=== PATIENT | male | born 1960 | race Caucasian/White ===

== ENCOUNTER → 2020-12-17 15:38 | Outpatient (CLI) | payer OTHER, MEDICAID, SELFPAY ==
[2020-12-17 16:22] LABS: BUN Creatinine Ratio 17.9 (6-22); Blood Urea Nitrogen 15 mg/dL (9-20); Calcium 9.5 mg/dL (8.4-10.2); Carbon Dioxide 30 mmol/L (22-32); Chloride 104 mmol/L (98-107); Cholesterol 267 mg/dL (140-199); Estimated Glomerular Filt Rate > 60.0 mL/min (>60); Glucose 102 mg/dL (70-100); HDL Cholesterol 49 mg/dL (40-60); HEMOLYSIS < 15 (0-50); LDL Cholesterol Calculated 185 mg/dL (<100); Potassium 4.2 mmol/L (3.4-5.1); Sodium 138 mmol/L (137-145); Triglycerides 163 mg/dL (35-150)
[2020-12-17 16:53] LABS: Prostate Specific Antigen Scrn 0.752 ng/mL (0.1-4.0)
[2020-12-17 16:58] LABS: Free T4, Direct Thyroxine 1.01 ng/dL (0.78-2.19)
[2020-12-17 17:12] LABS: Thyroid Stimulating Hormone 7.18 uIU/mL (0.47-4.68)
== END ==
PROVIDERS: PCP Student in an Organized Health Care Education/Training Program; Referring Provider Student in an Organized Health Care Education/Training Program; Visit Provider Student in an Organized Health Care Education/Training Program
DX: E03.9 Hypothyroidism, unspecified (principal); Z79.1 Long term (current) use of non-steroidal anti-inflammatories (NSAID); Z12.5 Encounter for screening for malignant neoplasm of prostate; Z13.220 Encounter for screening for lipoid disorders
CPT/HCPCS: 36415; 80048; 80061; 84439; 84443; 84481; G0103

== ENCOUNTER → 2021-04-19 10:03 | Outpatient (CLI) | payer OTHER, MEDICAID, SELFPAY ==
[2021-04-19 12:05] LABS: Cholesterol 251 mg/dL (140-199); HDL Cholesterol 43 mg/dL (40-60); LDL Cholesterol Calculated 155 mg/dL (<100); Triglycerides 264 mg/dL (35-150)
[2021-04-19 13:02] LABS: Free T4, Direct Thyroxine 0.98 ng/dL (0.78-2.19)
== END ==
PROVIDERS: PCP Student in an Organized Health Care Education/Training Program; Referring Provider Student in an Organized Health Care Education/Training Program; Visit Provider Student in an Organized Health Care Education/Training Program
DX: E03.9 Hypothyroidism, unspecified (principal); E78.5 Hyperlipidemia, unspecified
CPT/HCPCS: 36415; 80061; 84439; 84443

== ENCOUNTER → 2021-06-03 09:49 | Outpatient (CLI) | payer OTHER, MEDICAID, SELFPAY ==
[2021-06-03 11:00] LABS: Cholesterol 240 mg/dL (140-199); HDL Cholesterol 47 mg/dL (40-60); LDL Cholesterol Calculated 174 mg/dL (<100); Triglycerides 96 mg/dL (35-150)
[2021-06-03 11:35] LABS: TSH w/ Reflex to FT4 5.84 uIU/mL (0.47-4.68)
[2021-06-03 12:00] LABS: Free T4, Direct Thyroxine 1.45 ng/dL (0.78-2.19)
== END ==
PROVIDERS: PCP Student in an Organized Health Care Education/Training Program; Referring Provider Student in an Organized Health Care Education/Training Program; Visit Provider Student in an Organized Health Care Education/Training Program
DX: E03.9 Hypothyroidism, unspecified (principal); E78.2 Mixed hyperlipidemia
CPT/HCPCS: 36415; 80061; 84439; 84443

== ENCOUNTER → 2021-07-02 12:52 | Outpatient (CLI) | payer OTHER, MEDICAID, SELFPAY ==
--- NOTE | 2021-07-02 12:54 | DI.US.S_ITS ---
PROCEDURE: US RENAL COMPLETE INDICATIONS: Nocturia TECHNIQUE: Real-time scanning was performed of the kidneys and bladder, with image documentation. COMPARISON: None. FINDINGS: Kidneys: Kidneys are normal in size. Right kidney measures 10.1 cm long; left kidney measures 10.8 cm long. Right renal cortical thickness is 1.7 cm; left renal cortical thickness is 1.5 cm. Renal cortical echotexture is normal. No hydronephrosis or nephrolithiasis. No suspicious solid mass lesions. Bladder: Pre-void bladder volume is 88 mL. Post-void residual is 56 mL. Pre-void images demonstrate no intraluminal masses or stones. On pre-void images, right ureteral jet is noted with color Doppler interrogation. (Of note, ureteral jets may not be detectable in up to 25% of cases due to insufficient differences in specific gravity between ureteral and bladder urine). Miscellaneous: No free pelvic fluid. Incidentally noted of increased liver parenchymal echotexture is seen. IMPRESSION: 1. Normal appearing bilateral kidneys. No hydronephrosis or solid appearing renal lesion. 2. No gross bladder wall abnormality. Moderate amount of postvoid residual. 3. Incidentally noted of hepatic steatosis. Dictated by: Robby Gonzales M.D. on 07/02/2021 at 15:02 Approved by: Robby Gonzales M.D. on 07/02/2021 at 15:03
== END ==
PROVIDERS: PCP Student in an Organized Health Care Education/Training Program; Referring Provider Student in an Organized Health Care Education/Training Program; Visit Provider Student in an Organized Health Care Education/Training Program
DX: R35.1 Nocturia (principal); K76.0 Fatty (change of) liver, not elsewhere classified
CPT/HCPCS: 76770

== ENCOUNTER → 2021-09-07 09:49 | Outpatient (CLI) | payer OTHER, MEDICAID, SELFPAY ==
[2021-09-07 12:59] LABS: Alanine Aminotransferase 33 IU/L (<50); Albumin 4.2 g/dL (3.5-5.0); Albumin Globulin Ratio 1.8 (1.0-2.8); Alkaline Phosphatase 61 U/L (38-126); Aspartate Aminotransferase 38 IU/L (17-59); Bilirubin Total 0.5 mg/dL (0.2-1.3); Bilirubin Unconjugated 0.5 mg/dL (0.0-1.1); Cholesterol 148 mg/dL (140-199); Globulin 2.4 g/dL (1.7-4.1); HDL Cholesterol 38 mg/dL (40-60); HEMOLYSIS < 15 (0-50); LDL Cholesterol Calculated 81 mg/dL (<100); Total Protein 6.6 g/dL (6.3-8.2); Triglycerides 144 mg/dL (35-150)
== END ==
PROVIDERS: PCP Student in an Organized Health Care Education/Training Program; Referring Provider Physician Assistant; Visit Provider Physician Assistant
DX: L70.0 Acne vulgaris (principal)
CPT/HCPCS: 36415; 80061; 80076

== ENCOUNTER → 2021-10-18 10:21 | Outpatient (CLI) | payer OTHER, MEDICAID, SELFPAY ==
--- NOTE | 2021-10-18 10:25 | DI.MRI.S_ITS ---
PROCEDURE: MR HEAD/BRAIN WO/W CON INDICATIONS: metastatic brain metastasis TECHNIQUE: Noncontrast axial T1 spin echo, axial T2 fast spin echo, sagittal and axial FLAIR, coronal T2 fast spin echo, axial gradient echo, axial diffusion and ADC through the brain. After the administration of contrast, axial and coronal 3D VIBE or T1 spin echo with fat saturation through the brain. COMPARISON: None. This dictation was delayed, awaiting outside prior images, which have not arrived. However, correlation is made with the prior outside report dated 10/13/2020. FINDINGS: Image quality: Excellent. CSF Spaces: Basal cisterns are patent. No extra-axial fluid collections. Ventricles are normal in size and shape. Brain: There are areas of volume loss and encephalomalacia, particular involving the anterior aspect of the right frontal lobe and the posterior aspect of the left frontal lobe. No abnormal enhancement can be seen within these regions. No masses or abnormal enhancement can be seen elsewhere. No midline shift. The brainstem appears normal. Diffusion-weighted images demonstrate no acute ischemic insults. Normal intravascular flow voids are present. Skull and face: Superior craniotomy changes are seen. Calvarial marrow is normal in signal. Orbits appear normal. Sinuses: Sinuses and mastoids appear clear. IMPRESSION: Areas of focal volume loss can be seen, which most likely represent prior biopsy/resection change, although prior areas of infarction are also possible. No masses or areas of abnormal in [place] can be seen to suggest active metastatic disease. No findings of acute or subacute infarction can be seen. Dictated by: Darwin Randolph M.D. on 10/25/2021 at 14:40 Approved by: Darwin Randolph M.D. on 10/25/2021 at 14:43
--- NOTE | 2021-10-18 10:25 | DI.CT.S_ITS ---
PROCEDURE: CT CHEST ABD PEL W CON INDICATIONS: metastatic melanoma TECHNIQUE: After the administration of oral and intravenous contrast, axial sections acquired from the supraclavicular neck to the pubic symphysis. Coronal and sagittal reformats were performed. For radiation dose reduction, the following was used: automated exposure control, adjustment of mA and/or kV according to patient size. COMPARISON:[facility], US, US RENAL COMPLETE, 07/02/2021, 13:18. FINDINGS: Image quality: Excellent. CHEST: Lower Neck: No enlarged lymph nodes. Thyroid: Within normal limits. Axillae: No enlarged lymph nodes. Bilateral axillary clips. Chest Wall: Tiny nodule in the subcutaneous fat adjacent to the right shoulder measuring 0.7 cm, (2/13). Lungs and Airways: -Left lower lobe pulmonary nodule measuring 0.7 cm, (3/211). -Right lower lobe pulmonary nodule measuring 0.6 cm, (3/224). Right lower lobe calcified granuloma. No acute airspace opacity. Airways are clear. Pleura: No pneumothorax or pleural effusions. Heart: Heart size is normal. No pericardial effusion. Thoracic Vessels: The aorta and pulmonary arteries demonstrate normal size. Left vertebral artery originates off of the aortic arch. No central pulmonary embolism. Mediastinum and [place]: No enlarged lymph nodes. Esophagus: No wall thickening. No hiatal hernia. ABDOMEN: Liver: No focal lesion. Gallbladder: Unremarkable. Biliary ducts: Unremarkable. Pancreas: Unremarkable. Spleen: Unremarkable. Adrenal Glands: No nodule. Kidneys and Ureters: No hydronephrosis. No solid renal mass. Stomach and Bowel: Stomach, small bowel loops, and colon are unremarkable. Diverticulosis. Normal appendix. Peritoneum: No abnormal intraperitoneal fluid. No free air. Ventral Wall: No hernia. Abdominal Nodes: No retroperitoneal or mesenteric adenopathy by size criteria. Intra-aortocaval node measuring 0.8 cm, (2/86). Vessels: Aorta and inferior vena cava are normal in size. Splenic artery originates off of the aorta, variant. PELVIS: Pelvic Organs: Unremarkable. Bladder: Unremarkable. Pelvic Nodes: No enlarged lymph nodes. Miscellaneous: Fat containing left inguinal hernia. Bones: No suspicious lesion. Moderate lumbar spine DDD. IMPRESSION: 1. A couple pulmonary nodules. Largest at the left lower lobe measuring at 0.7 cm. These are indeterminate but concerning for metastatic disease. 2. Bilateral axillary node dissections. Small nodule in the right shoulder subcutaneous fat measuring 0.7 cm is indeterminate. 3. Mildly prominent retroperitoneal lymph node. Dictated by: Sachin Lewis M.D. on 10/25/2021 at 15:35 Approved by: Sachin Lewis M.D. on 10/25/2021 at 15:50
== END ==
PROVIDERS: PCP Student in an Organized Health Care Education/Training Program; Referring Provider Internal Medicine Hematology & Oncology; Visit Provider Internal Medicine Hematology & Oncology
DX: C79.31 Secondary malignant neoplasm of brain (principal); L70.0 Acne vulgaris; L85.3 Xerosis cutis; K13.0 Diseases of lips; G93.89 Other specified disorders of brain; R59.0 Localized enlarged lymph nodes; R91.8 Other nonspecific abnormal finding of lung field; Z79.899 Other long term (current) drug therapy
CPT/HCPCS: 70553; 71260; 74177; A9579; Q9967

== ENCOUNTER → 2021-11-09 08:24 | Outpatient (CLI) | payer OTHER, MEDICAID, SELFPAY ==
[2021-11-09 10:44] LABS: Alanine Aminotransferase 70 IU/L (<50); Albumin 4.5 g/dL (3.5-5.0); Albumin Globulin Ratio 1.5 (1.0-2.8); Alkaline Phosphatase 69 U/L (38-126); Aspartate Aminotransferase 53 IU/L (17-59); Bilirubin Total 0.4 mg/dL (0.2-1.3); Bilirubin Unconjugated 0.3 mg/dL (0.0-1.1); Cholesterol 197 mg/dL (140-199); Globulin 3.1 g/dL (1.7-4.1); HDL Cholesterol 41 mg/dL (40-60); HEMOLYSIS < 15 (0-50); LDL Cholesterol Calculated 119 mg/dL (<100); Total Protein 7.6 g/dL (6.3-8.2); Triglycerides 187 mg/dL (35-150)
[2021-11-09 10:55] LABS: LDL Cholesterol Direct 95 mg/dL (<100)
== END ==
PROVIDERS: PCP Student in an Organized Health Care Education/Training Program; Referring Provider Physician Assistant; Visit Provider Physician Assistant
DX: L70.0 Acne vulgaris (principal)
CPT/HCPCS: 36415; 80061; 80076; 83721

== ENCOUNTER → 2022-04-25 11:09 | Outpatient (CLI) | payer OTHER, MEDICAID, SELFPAY ==
[2022-04-25 12:21] LABS: Add Manual Diff / Slide Review NO; Basophils Absolute Auto 100 /uL (0-100); Eosinophils Absolute Auto 200 /uL (0-450); Eosinophils Percent Auto 2.9 % (2-4); Hematocrit 42.9 % (41-53); Hemoglobin 14.9 g/dL (13.5-17.5); Lymphocytes Absolute Auto 1600 /uL (1100-4500); Lymphocytes Percent Auto 25.7 % (25-40); Mean Corpuscular HGB Conc 34.8 % (30-36); Mean Corpuscular Hemoglobin 28.9 PG (26-34); Monocytes Absolute Auto 400 /uL (0-900); Monocytes Percent Auto 5.8 % (3-14); Neutrophils Absolute Auto 4000 /uL (1500-7000); Neutrophils Percent Auto 64.6 % (50-75); Platelet Count 190 X10^3/uL (150-400); Red Blood Cell Count 5.17 X10^6/uL (4.5-5.9); Red Cell Distribution Width 12.8 % (11.6-14.8); White Blood Cell Count 6.2 X10^3/uL (4.5-11.0)
[2022-04-25 13:03] LABS: Alanine Aminotransferase 44 IU/L (<50); Albumin 4.2 g/dL (3.5-5.0); Albumin Globulin Ratio 1.4 (1.0-2.8); Alkaline Phosphatase 78 U/L (38-126); Aspartate Aminotransferase 42 IU/L (17-59); Bilirubin Total 0.7 mg/dL (0.2-1.3); Blood Urea Nitrogen 13 mg/dL (9-20); Calcium 9.2 mg/dL (8.4-10.2); Carbon Dioxide 33 mmol/L (22-32); Chloride 99 mmol/L (98-107); Estimated Glomerular Filt Rate > 60 mL/min (>60); Globulin 3.1 g/dL (1.7-4.1); Glucose 110 mg/dL (80-110); HEMOLYSIS < 15 (0-50); Potassium 4.8 mmol/L (3.4-5.1); Sodium 139 mmol/L (137-145); Total Protein 7.3 g/dL (6.3-8.2)
[2022-04-25 13:08] LABS: Cholesterol 167 mg/dL (140-199); HDL Cholesterol 49 mg/dL (40-60); LDL Cholesterol Calculated 89 mg/dL (<100); Triglycerides 145 mg/dL (35-150)
== END ==
PROVIDERS: Internal Medicine Hematology & Oncology; PCP Student in an Organized Health Care Education/Training Program; Referring Provider Student in an Organized Health Care Education/Training Program; Visit Provider Student in an Organized Health Care Education/Training Program
DX: E78.2 Mixed hyperlipidemia (principal); C79.31 Secondary malignant neoplasm of brain; Z85.820 Personal history of malignant melanoma of skin
CPT/HCPCS: 36415; 80053; 80061; 85025

== ENCOUNTER → 2022-10-13 07:55 | Outpatient (CLI) | payer OTHER, MEDICAID, SELFPAY ==
--- NOTE | 2022-10-13 07:58 | DI.CT.S_ITS ---
PROCEDURE: CT CHEST ABD PEL W CON INDICATIONS: metastatic melanoma TECHNIQUE: After the administration of oral and intravenous contrast, axial sections acquired from the supraclavicular neck to the pubic symphysis. Coronal and sagittal reformats were performed. For radiation dose reduction, the following was used: automated exposure control, adjustment of mA and/or kV according to patient size. COMPARISON: [facility], CT, CT CHEST ABD PEL W CON, 10/18/2021, 12:16. FINDINGS: Image quality: Excellent. CHEST: Lower Neck: No enlarged lymph nodes. Thyroid: Within normal limits. Axillae: No enlarged lymph nodes. Bilateral axillary node resections. Chest Wall: Unremarkable. Unchanged size of subcutaneous nodular density, subcutaneous fat near the right shoulder, image 11/2. Lungs and Airways: Pulmonary nodules are as follows: 1. Posterior left lower lobe, previous image 211 and current image 222/5. Unchanged, measuring 7 mm. 2. Posterior lateral right lower lobe, previous image 224 and current image 216/5, unchanged, measuring 6 mm. 3. Question slight interval increase in a left lower lobe pulmonary nodule, previous image 157 and current image 162, previously 2 mm and currently 3 or 4 mm. Pleura: No pneumothorax or pleural effusions. Heart: Heart size is normal. No pericardial effusion. Thoracic Vessels: Borderline aneurysmal dilatation of the ascending aorta, measuring 4.1 cm. Pulmonary arteries are normal in caliber. Normal variant origin of the left vertebral artery as an independent vessel off the aortic arch. Mediastinum and Daph[place]: No enlarged lymph nodes. Esophagus: No wall thickening. No hiatal hernia. ABDOMEN: Liver: Unremarkable. Gallbladder: Unremarkable. Biliary ducts: Unremarkable. Pancreas: Unremarkable. Spleen: Unremarkable. Adrenal Glands: Unremarkable. Kidneys and Ureters: Unremarkable. Stomach and Bowel: Very mild diverticulosis. Otherwise unremarkable. Peritoneum: No abnormal intraperitoneal fluid. No free air. Ventral Wall: No hernia. Abdominal Nodes: No retroperitoneal or mesenteric adenopathy by size criteria. Vessels: Aorta and inferior vena cava are normal in size. PELVIS: Pelvic Organs: Unremarkable. Bladder: Unremarkable. Pelvic Nodes: No enlarged lymph nodes. Miscellaneous: No inguinal hernias are seen. Bones: Chronic benign deformity of the medial left iliac bone. No lytic or blastic bony lesions. Lumbar degenerative change. IMPRESSION: 1. There is a question of slight interval increase in size of the smallest of 3 measured pulmonary nodules. This is not definite. These certainly can all be benign pulmonary nodules. 2. No other significant findings in the chest. 3. No evidence of metastatic disease in the abdomen and pelvis. Comment: Consider follow-up CT in 12 months. Dictated by: Donis Dominguez M.D. on 10/13/2022 at 12:31 Approved by: Donis Dominguez M.D. on 10/13/2022 at 13:01
--- NOTE | 2022-10-13 07:58 | DI.MRI.S_ITS ---
PROCEDURE: MR HEAD/BRAIN WO/W CON INDICATIONS: metastic melanoma TECHNIQUE: Noncontrast axial T1 spin echo, axial T2 fast spin echo, sagittal and axial FLAIR, coronal T2 fast spin echo, axial gradient echo, axial diffusion and ADC through the brain. After the administration of contrast, axial and coronal and sagittal T1 spin echo with fat saturation through the brain. COMPARISON: [facility], MR, MR HEAD/BRAIN WO/W CON, 10/18/2021, 10:47. FINDINGS: Image quality: Excellent. CSF spaces: Basal cisterns are patent. No extra-axial fluid collections. Ventricles are normal in size and shape. Brain: No midline shift. No acute intracranial bleeds or masses. No abnormal intracranial enhancement. Multifocal regions of encephalomalacia within the right frontal and left parietal lobes, as before. There is cerebral volume loss for age. There is periventricular white matter chronic small vessel ischemic change. The brainstem appears normal. Diffusion-weighted images demonstrate no acute ischemic insults. No chronic ischemic insults. Normal intravascular flow voids are present. Skull and face: Bilateral craniotomies, as before. Calvarial marrow is otherwise normal in signal. Orbits appear normal. Sinuses: Sinuses and mastoids appear clear. IMPRESSION: 1. Stable postsurgical sequelae. 2. Stable bilateral regions of encephalomalacia, consistent with resection cavities and/or chronic infarction. 3. No evidence active metastatic disease. Dictated by: Armin Martini M.D. on 10/13/2022 at 10:15 Approved by: Armin Martini M.D. on 10/13/2022 at 10:18
[2022-10-13 08:15] LABS: Add Manual Diff / Slide Review NO; Basophils Absolute Auto 0 /uL (0-100); Basophils Percent Auto 0.8 % (0-2); Eosinophils Absolute Auto 100 /uL (0-450); Eosinophils Percent Auto 2.4 % (2-4); Hematocrit 41.5 % (41-53); Hemoglobin 14.7 g/dL (13.5-17.5); Lymphocytes Absolute Auto 1400 /uL (1100-4500); Lymphocytes Percent Auto 26.2 % (25-40); Mean Corpuscular HGB Conc 35.5 % (30-36); Mean Corpuscular Hemoglobin 29.2 PG (26-34); Mean Corpuscular Volume 82.2 fL (80-100); Monocytes Absolute Auto 400 /uL (0-900); Monocytes Percent Auto 7.7 % (3-14); Neutrophils Absolute Auto 3500 /uL (1500-7000); Neutrophils Percent Auto 62.9 % (50-75); Platelet Count 155 X10^3/uL (150-400); Red Blood Cell Count 5.04 X10^6/uL (4.5-5.9); Red Cell Distribution Width 12.8 % (11.6-14.8); White Blood Cell Count 5.5 X10^3/uL (4.5-11.0)
[2022-10-13 08:26] LABS: Alanine Aminotransferase 34 IU/L (<50); Albumin 4.5 g/dL (3.5-5.0); Albumin Globulin Ratio 1.5 (1.0-2.8); Alkaline Phosphatase 65 U/L (38-126); Aspartate Aminotransferase 35 IU/L (17-59); Bilirubin Total 0.6 mg/dL (0.2-1.3); Blood Urea Nitrogen 15 mg/dL (9-20); Calcium 9.1 mg/dL (8.4-10.2); Carbon Dioxide 33 mmol/L (22-32); Chloride 100 mmol/L (98-107); Estimated Glomerular Filt Rate > 60 mL/min (>60); Globulin 3.1 g/dL (1.7-4.1); Glucose 102 mg/dL (80-110); HEMOLYSIS < 15 (0-50); Lactate Dehydrogenase 190 U/L (120-246); Potassium 4.3 mmol/L (3.4-5.1); Sodium 138 mmol/L (137-145); Total Protein 7.6 g/dL (6.3-8.2)
== END ==
PROVIDERS: PCP Student in an Organized Health Care Education/Training Program; Referring Provider Internal Medicine Hematology & Oncology; Visit Provider Internal Medicine Hematology & Oncology
DX: C79.31 Secondary malignant neoplasm of brain (principal); Z85.820 Personal history of malignant melanoma of skin; G93.89 Other specified disorders of brain; R91.8 Other nonspecific abnormal finding of lung field
CPT/HCPCS: 36415; 70553; 71260; 74177; 80053; 83615; 85025; A9579; Q9967

== ENCOUNTER → 2023-04-11 11:33 | Outpatient (CLI) | payer OTHER, MEDICAID, SELFPAY ==
[2023-04-11 12:12] LABS: Add Manual Diff / Slide Review NO; Basophils Absolute Auto 100 /uL (0-100); Eosinophils Absolute Auto 100 /uL (0-450); Eosinophils Percent Auto 2.1 % (2-4); Hematocrit 43.2 % (41-53); Hemoglobin 14.9 g/dL (13.5-17.5); Lymphocytes Absolute Auto 1500 /uL (1100-4500); Mean Corpuscular HGB Conc 34.5 % (30-36); Mean Corpuscular Hemoglobin 28.7 PG (26-34); Mean Corpuscular Volume 83.2 fL (80-100); Monocytes Absolute Auto 400 /uL (0-900); Monocytes Percent Auto 6.9 % (3-14); Neutrophils Absolute Auto 3200 /uL (1500-7000); Platelet Count 165 X10^3/uL (150-400); Red Blood Cell Count 5.19 X10^6/uL (4.5-5.9); Red Cell Distribution Width 12.5 % (11.6-14.8); White Blood Cell Count 5.2 X10^3/uL (4.5-11.0)
[2023-04-11 12:49] LABS: HEMOLYSIS < 15 (0-50)
[2023-04-11 12:56] LABS: Alanine Aminotransferase 41 IU/L (<50); Albumin 4.6 g/dL (3.5-5.0); Albumin Globulin Ratio 1.5 (1.0-2.8); Alkaline Phosphatase 59 U/L (38-126); Aspartate Aminotransferase 47 IU/L (17-59); BUN Creatinine Ratio 17.2 (6-22); Bilirubin Total 0.7 mg/dL (0.2-1.3); Blood Urea Nitrogen 17 mg/dL (9-20); Calcium 9.8 mg/dL (8.4-10.2); Carbon Dioxide 32 mmol/L (22-32); Chloride 98 mmol/L (98-107); Cholesterol 185 mg/dL (140-199); Estimated Glomerular Filt Rate > 60 mL/min (>60); Globulin 3.1 g/dL (1.7-4.1); Glucose 106 mg/dL (80-110); HDL Cholesterol 52 mg/dL (40-60); LDL Cholesterol Calculated 100 mg/dL (<100); Potassium 4.5 mmol/L (3.4-5.1); Sodium 137 mmol/L (137-145); Total Protein 7.7 g/dL (6.3-8.2); Triglycerides 165 mg/dL (35-150)
[2023-04-11 15:57] LABS: Hemoglobin A1C% w Est Avg Glu 5.3 % (4.0-6.0)
[2023-04-11 17:51] LABS: TSH w/ Reflex to FT4 2.93 uIU/mL (0.47-4.68)
[2023-04-13 18:12] LABS: HIV 1 & 2 Ab/Ag 4th Gen Combo NEGATIVE (NEGATIVE); Hep C Virus Ab w/Reflex Quant NEGATIVE s/c (NEGATIVE)
== END ==
PROVIDERS: PCP Family Medicine; Referring Provider Family Medicine; Visit Provider Family Medicine
DX: E03.9 Hypothyroidism, unspecified (principal); E78.2 Mixed hyperlipidemia; Z00.00 Encounter for general adult medical examination without abnormal findings
CPT/HCPCS: 36415; 80053; 80061; 83036; 84153; 84443; 85025; 86803; 87389

== ENCOUNTER → 2023-04-11 11:34 | Oncology outpatient (ONC) | payer OTHER, MEDICAID, SELFPAY ==
--- NOTE | 2021-05-05 09:50 | ONC.MSW ---
Description: New Referral Navigation T/C Reason for Referral: Hx Melanoma-metastatic, wants to establish care Activity: Reviewed clinicals and referral for medical status, acuity, and immediate needs. Pt was first dx 12/2015, had surgery and Gamma Knife procedure done, followed by chemo with nivolumab from 03/11-03/12 at the [facility] in [place]. He was last seen by his Oncologist, Dr. Luciano, 03/2019, and had a CT and MRI done in March 2020. Forwarded to scheduling for next available consult time. NOTE: PCP recommends to NOT GIVE CONTROLLED SUBSTANCES, pt has a hx of substance abuse.
--- NOTE | 2021-05-27 11:16 | P.CONONC_ITS ---
History of Present Illness - Data of Consult Patient: new to practice Consult date: 05/27/21 Requesting Physician: Dheeraj Wade MD Primary Care Provider: Dheeraj Wade MD - Consult Narrative Reason for consult: Metastatic melanoma, BRAF V600K mutation positive Narrative: Nicho Reyes is a 60 year old male. He recalled that he was diagnosed with skin melanoma in the upper back about 9+ years ago (2009). He then was diagnosed with metastatic melanoma to the brain, BRaf V600K positive in 2015. 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 Patient underwent surgical resection of brain metastasis in December 2015 followed by gamma knife treatment. Patient was found to have low volume pulmonary metastasis on CT imaging. Patient received immunotherapy with nivolumab from February 2016 to February 2017 with no significant side effects. Patient has been followed by surveillance CT scan and MRI brain since. On 10/26/2020, patient was evaluated by Lauryn Arreaga at [facility]. CT chest abdomen and pelvis on 10/21/2020 showed stable examination without evidence of disease progression. It reported right lower lobe pulmonary nodule 6 mm and left lower lobe pulmonary nodule 7 mm. The patient also underwent brain MRI on 10/15/2020 that showed no evidence of new or progressive metastatic disease. No evidence of recent infarct, no acute intracranial hemorrhage, and no pathologic mass effect or significant interval change. He has been off imunotherpay for 4+ years. He reports no headache, no vision changes. no double vision, and no fatigue. He works out a lot. He has dry cough. No abdominal pain, no diarrhea and no skin rashes. CC: Jad Merritt MD Home Medications and Allergies Home Medications Medication Instructions Recorded Confirmed Type famotidine 20 mg tablet 20 mg PO BEDTIME 12/17/20 05/27/21 History ibuprofen 600 mg tablet 600 mg PO Q8H PRN 12/17/20 05/27/21 History levothyroxine 100 mcg tablet 100 mcg PO DAILY #90 tab 04/19/21 05/27/21 Rx pravastatin 40 mg tablet 40 mg PO DAILY #90 tab 04/21/21 05/27/21 Rx ascorbic acid (vitamin C) 500 mg 500 mg PO DAILY 05/27/21 05/27/21 History capsule,extended release (Vitamin C) cholecalciferol (vitamin D3) 50 50 mcg PO DAILY 05/27/21 05/27/21 History mcg (2,000 unit) capsule (Vitamin D3) multivitamin 1 tab PO DAILY 05/27/21 05/27/21 History Allergies Allergy/AdvReac Type Severity Reaction Status Date / Time No Known Drug Allergies Allergy Unverified 12/17/20 14:42 Medical History - Medical, Surgical, Family History Medical History: Medical History (Last Updated 05/27/21 @ 12:17 by Jad Merritt MD) HLD (hyperlipidemia) Hx of malignant melanoma of skin Hypothyroidism Surgical History: Surgical History (Last Updated 05/27/21 @ 12:17 by Jad Merritt MD) H/O craniotomy Family History: Family History (Last Updated 05/27/21 @ 12:17 by Jad Merritt MD) Mother Breast cancer - Social History Smoking Status: Never smoker Substance Use Type: does not use Alcohol Intake: never Review of Systems All systems PM: reviewed and no additional remarkable complaints except as stated Exam Vital signs: 05/27/21 23:23 Last Vital Signs Temp 98.6 F 05/27/21 11:51 Pulse 58 L 05/27/21 11:51 Resp 18 05/27/21 11:51 BP 137/86 05/27/21 11:51 Pulse Ox 98 05/27/21 11:51 - Constitutional positive no acute distress, positive morbidly obese, positive cooperative - Routine HEENT Exam Head: Present: normocephalic Eye: Present: EOMI, PERRL, normal accommodation. Absent: conjunctival icterus - Routine Neck Exam Present: supple. Absent: lymphadenopathy, thyromegaly - Routine Chest/Breast/Axilla Exam Axillae: Absent: lymphadenopathy - Routine Respiratory Exam Present: Clear to auscultation bilaterally. Absent: wheezes - Routine Cardiovascular Exam Present: RRR, S1, S2. Absent: murmur, gallop, rubs - Routine Abdominal Exam Present: soft. Absent: tenderness, distended, rebound, organomegaly - Routine Extremities Exam Absent: edema - Routine Neurological Exam Present: alert, oriented X3, CN II-XII intact. Absent: sensory deficit, motor deficit - Routine Psychiatric Exam Present: normal affect Results - Labs Laboratory Last Values WBC 6.1 X10^3/uL (4.5-11.0) 05/27/21 12:55 RBC 5.16 X10^6/uL (4.5-5.9) 05/27/21 12:55 Hgb 14.9 g/dL (13.5-17.5) 05/27/21 12:55 Hct 42.3 % (41-53) 05/27/21 12:55 MCV 81.9 fL (80-100) 05/27/21 12:55 MCH 28.9 PG (26-34) 05/27/21 12:55 MCHC 35.3 % (30-36) 05/27/21 12:55 RDW 13.1 % (11.6-14.8) 05/27/21 12:55 Plt Count 162 X10^3/uL (150-400) 05/27/21 12:55 Neut % (Auto) 62.1 % (50-75) 05/27/21 12:55 Lymph % (Auto) 27.3 % (25-40) 05/27/21 12:55 [place] % (Auto) 7.3 % (3-14) 05/27/21 12:55 Eos % (Auto) 2.1 % (2-4) 05/27/21 12:55 Baso % (Auto) 1.2 % (0-2) 05/27/21 12:55 Neut # (Auto) 3800 /uL (7032-1684) 05/27/21 12:55 Lymph # (Auto) 1700 /uL (3424-3696) 05/27/21 12:55 [place] # (Auto) 400 /uL (0-900) 05/27/21 12:55 Eos # (Auto) 100 /uL (0-450) 05/27/21 12:55 Baso # (Auto) 100 /uL (0-100) 05/27/21 12:55 Sodium 139 mmol/L (137-145) 05/27/21 12:55 Potassium 4.4 mmol/L (3.4-5.1) 05/27/21 12:55 Chloride 99 mmol/L (98-107) 05/27/21 12:55 Carbon Dioxide 33 mmol/L (22-32) H 05/27/21 12:55 BUN 17 mg/dL (9-20) 05/27/21 12:55 Creatinine 0.98 mg/dL (0.66-1.25) 05/27/21 12:55 Estimated GFR > 60.0 mL/min (>60) 05/27/21 12:55 BUN/Creatinine Ratio 17.3 (6-22) 05/27/21 12:55 Glucose 87 mg/dL (70-100) 05/27/21 12:55 Calcium 9.8 mg/dL (8.4-10.2) 05/27/21 12:55 Total Bilirubin 0.7 mg/dL (0.2-1.3) 05/27/21 12:55 AST 40 IU/L (17-59) 05/27/21 12:55 ALT 35 IU/L (<50) 05/27/21 12:55 Alkaline Phosphatase 64 U/L (38-126) 05/27/21 12:55 Lactate Dehydrogenase 525 U/L (313-618) 05/27/21 12:55 Total Protein 7.4 g/dL (6.3-8.2) 05/27/21 12:55 Albumin 4.6 g/dL (3.5-5.0) 05/27/21 12:55 Globulin 2.8 g/dL (1.7-4.1) 05/27/21 12:55 Albumin/Globulin Ratio 1.6 (1.0-2.8) 05/27/21 12:55 Assessment and Plan (1) Malignant melanoma metastatic to brain 60 year old male with remote history of upper back melanoma status post wide local excision and bilateral axillary lymph node dissection about in 2009. He developed recurrent metastatic melanoma involving brain s/p craniotomy in December 2015 followed by gamma knife treatment and one year of nivolumab completed 03/15 17. His melanoma is BRAF V600K positive. He has been on active surveillance since and has been ALPESH for the past 4+ years. Clinically, I do not think there is any evidence of disease recurrence. I will continue the planned surveillance. Plan: CBC, CMP, TSH in [address] CAP w/contrast in 6 months MR brain w/wo contrast in 6 months RTC after the above results are available
[2021-05-27 11:51] VITALS: BP 137/86; PULSE 58; RESP 18; TEMP 37; O2SAT 98
[2021-05-27 13:11] LABS: Add Manual Diff / Slide Review NO; Basophils Absolute Auto 100 /uL (0-100); Basophils Percent Auto 1.2 % (0-2); Eosinophils Absolute Auto 100 /uL (0-450); Eosinophils Percent Auto 2.1 % (2-4); Hematocrit 42.3 % (41-53); Hemoglobin 14.9 g/dL (13.5-17.5); Lymphocytes Absolute Auto 1700 /uL (1100-4500); Lymphocytes Percent Auto 27.3 % (25-40); Mean Corpuscular HGB Conc 35.3 % (30-36); Mean Corpuscular Hemoglobin 28.9 PG (26-34); Mean Corpuscular Volume 81.9 fL (80-100); Monocytes Absolute Auto 400 /uL (0-900); Monocytes Percent Auto 7.3 % (3-14); Neutrophils Absolute Auto 3800 /uL (1500-7000); Neutrophils Percent Auto 62.1 % (50-75); Platelet Count 162 X10^3/uL (150-400); Red Blood Cell Count 5.16 X10^6/uL (4.5-5.9); Red Cell Distribution Width 13.1 % (11.6-14.8); White Blood Cell Count 6.1 X10^3/uL (4.5-11.0)
[2021-05-27 16:18] LABS: Alanine Aminotransferase 35 IU/L (<50); Albumin 4.6 g/dL (3.5-5.0); Albumin Globulin Ratio 1.6 (1.0-2.8); Alkaline Phosphatase 64 U/L (38-126); Aspartate Aminotransferase 40 IU/L (17-59); BUN Creatinine Ratio 17.3 (6-22); Bilirubin Total 0.7 mg/dL (0.2-1.3); Blood Urea Nitrogen 17 mg/dL (9-20); Calcium 9.8 mg/dL (8.4-10.2); Carbon Dioxide 33 mmol/L (22-32); Chloride 99 mmol/L (98-107); Estimated Glomerular Filt Rate > 60.0 mL/min (>60); Globulin 2.8 g/dL (1.7-4.1); Glucose 87 mg/dL (70-100); HEMOLYSIS 16 (0-50); Lactate Dehydrogenase 525 U/L (313-618); Potassium 4.4 mmol/L (3.4-5.1); Sodium 139 mmol/L (137-145); Total Protein 7.4 g/dL (6.3-8.2)
[2021-08-06 11:48] LABS: Add Manual Diff / Slide Review NO; Basophils Absolute Auto 0 /uL (0-100); Basophils Percent Auto 0.6 % (0-2); Eosinophils Absolute Auto 200 /uL (0-450); Eosinophils Percent Auto 2.9 % (2-4); Hematocrit 41.4 % (41-53); Hemoglobin 14.6 g/dL (13.5-17.5); Lymphocytes Absolute Auto 1600 /uL (1100-4500); Lymphocytes Percent Auto 26.5 % (25-40); Mean Corpuscular HGB Conc 35.1 % (30-36); Mean Corpuscular Hemoglobin 28.7 PG (26-34); Mean Corpuscular Volume 81.7 fL (80-100); Monocytes Absolute Auto 400 /uL (0-900); Monocytes Percent Auto 7.2 % (3-14); Neutrophils Absolute Auto 3900 /uL (1500-7000); Neutrophils Percent Auto 62.8 % (50-75); Platelet Count 184 X10^3/uL (150-400); Red Blood Cell Count 5.07 X10^6/uL (4.5-5.9); Red Cell Distribution Width 13.2 % (11.6-14.8); White Blood Cell Count 6.2 X10^3/uL (4.5-11.0)
[2021-08-06 12:23] LABS: Alanine Aminotransferase 48 IU/L (<50); Albumin 4.5 g/dL (3.5-5.0); Albumin Globulin Ratio 1.7 (1.0-2.8); Alkaline Phosphatase 68 U/L (38-126); Aspartate Aminotransferase 46 IU/L (17-59); Bilirubin Total 0.6 mg/dL (0.2-1.3); Bilirubin Unconjugated 0.6 mg/dL (0.0-1.1); Cholesterol 174 mg/dL (140-199); Globulin 2.6 g/dL (1.7-4.1); HDL Cholesterol 49 mg/dL (40-60); HEMOLYSIS < 15 (0-50); LDL Cholesterol Calculated 102 mg/dL (<100); Total Protein 7.1 g/dL (6.3-8.2); Triglycerides 115 mg/dL (35-150); VLDL Cholesterol Calculated 23 mg/dL (2-30)
[2021-10-18 12:15] LABS: Add Manual Diff / Slide Review NO; Alanine Aminotransferase 94 IU/L (<50); Albumin 4.2 g/dL (3.5-5.0); Albumin Globulin Ratio 1.4 (1.0-2.8); Alkaline Phosphatase 75 U/L (38-126); Aspartate Aminotransferase 77 IU/L (17-59); BUN Creatinine Ratio 18.3 (6-22); Basophils Absolute Auto 0 /uL (0-100); Basophils Percent Auto 0.5 % (0-2); Bilirubin Total 0.4 mg/dL (0.2-1.3); Bilirubin Unconjugated 0.6 mg/dL (0.0-1.1); Blood Urea Nitrogen 15 mg/dL (9-20); Calcium 8.9 mg/dL (8.4-10.2); Carbon Dioxide 36 mmol/L (22-32); Chloride 102 mmol/L (98-107); Cholesterol 210 mg/dL (140-199); Eosinophils Absolute Auto 100 /uL (0-450); Eosinophils Percent Auto 1.7 % (2-4); Estimated Glomerular Filt Rate > 60 mL/min (>60); Globulin 3.1 g/dL (1.7-4.1); Glucose 107 mg/dL (70-100); HDL Cholesterol 43 mg/dL (40-60); HEMOLYSIS < 15 (0-50); Hematocrit 41.2 % (41-53); Hemoglobin 14.2 g/dL (13.5-17.5); LDL Cholesterol Calculated 125 mg/dL (<100); Lymphocytes Absolute Auto 1600 /uL (1100-4500); Lymphocytes Percent Auto 25.6 % (25-40); Mean Corpuscular HGB Conc 34.6 % (30-36); Mean Corpuscular Hemoglobin 28.7 PG (26-34); Mean Corpuscular Volume 82.9 fL (80-100); Monocytes Absolute Auto 400 /uL (0-900); Monocytes Percent Auto 6.9 % (3-14); Neutrophils Absolute Auto 4000 /uL (1500-7000); Neutrophils Percent Auto 65.3 % (50-75); Platelet Count 172 X10^3/uL (150-400); Potassium 4.4 mmol/L (3.4-5.1); Red Blood Cell Count 4.97 X10^6/uL (4.5-5.9); Red Cell Distribution Width 13.3 % (11.6-14.8); Sodium 139 mmol/L (137-145); Total Protein 7.3 g/dL (6.3-8.2); Triglycerides 208 mg/dL (35-150); White Blood Cell Count 6.1 X10^3/uL (4.5-11.0)
[2021-10-18 12:45] LABS: Thyroid Stimulating Hormone 2.97 uIU/mL (0.47-4.68)
--- NOTE | 2021-10-26 13:59 | ONC.PN ---
PN -Subjective - Date of Visit Date of visit: 10/26/21 Chief Complaint: Nicho is a 60 year old male with metastatic melanoma Interval history: Nicho Reyes is a 60 year old male. He recalled that he was diagnosed with skin melanoma in the upper back about in 2009. 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 Patient underwent surgical resection of brain metastasis in December 2015 followed by gamma knife treatment. Patient was found to have low volume pulmonary metastasis on CT imaging. Patient received immunotherapy with nivolumab from February 2016 to February 2017 with no significant side effects. Patient has been followed by surveillance CT scan and MRI brain since. On 10/26/2020, patient was evaluated by Lauryn Arreaga at [facility]. CT chest abdomen and pelvis on 10/21/2020 showed stable examination without evidence of disease progression. It reported right lower lobe pulmonary nodule 6 mm and left lower lobe pulmonary nodule 7 mm. The patient also underwent brain MRI on 10/15/2020 that showed no evidence of new or progressive metastatic disease. No evidence of recent infarct, no acute intracranial hemorrhage, and no pathologic mass effect or significant interval change. Since his previous visit, patient underwent CT of the chest abdomen and pelvis with contrast that showed a couple of pulmonary nodules largest of which is at the left lower lobe measuring 0.7 cm, bilateral axillary ashli dissections and a small nodule in the right shoulder subcutaneous fat measuring 0.7 cm, and mildly prominent retroperitoneal lymph node. Patient also underwent brain MRI on the same day that showed areas of focal volume loss likely representing prior biopsy/resection change, no masses or areas of abnormal to suggest active metastatic disease. No findings of acute or sub acute infarction. He reports no headache, no vision changes. no double vision, and no fatigue. He works out a lot. He has dry cough. No abdominal pain, no diarrhea and no skin rashes. Home Medications and Allergies Home Medications Medication Instructions Recorded Confirmed Type famotidine 20 mg tablet 20 mg PO BEDTIME 12/17/20 10/26/21 History ibuprofen 600 mg tablet 600 mg PO Q8H PRN 12/17/20 10/26/21 History ascorbic acid (vitamin C) 500 mg 500 mg PO DAILY 05/27/21 10/26/21 History capsule,extended release (Vitamin C) cholecalciferol (vitamin D3) 50 50 mcg PO DAILY 05/27/21 10/26/21 History mcg (2,000 unit) capsule (Vitamin D3) multivitamin 1 tab PO DAILY 05/27/21 10/26/21 History levothyroxine 125 mcg tablet 125 mcg PO DAILY #90 tab 06/10/21 10/26/21 Rx oxybutynin chloride 5 mg 5 mg PO DAILY #90 tab 08/12/21 10/26/21 Rx tablet,extended release 24 hr rosuvastatin 20 mg tablet See Rx Instructions .ROUTE 09/08/21 10/26/21 Rx .COMPLEX #90 tab isotretinoin 40 mg capsule 40 mg PO DAILY 10/26/21 10/26/21 History (Amnesteem) Allergies Allergy/AdvReac Type Severity Reaction Status Date / Time No Known Drug Allergies Allergy Unverified 06/10/21 10:56 Exam Vital signs: 10/26/21 14:42 Last Vital Signs Temp 98.2 F 10/26/21 14:08 Pulse 55 L 10/26/21 14:08 Resp 18 10/26/21 14:08 BP 126/78 10/26/21 14:08 Pulse Ox 97 10/26/21 14:08 Narrative: The patient appears comfortable and not in any acute respiratory distress. Results - Labs Laboratory Last Values WBC 6.1 X10^3/uL (4.5-11.0) 10/18/21 10:32 RBC 4.97 X10^6/uL (4.5-5.9) 10/18/21 10:32 Hgb 14.2 g/dL (13.5-17.5) 10/18/21 10:32 Hct 41.2 % (41-53) 10/18/21 10:32 MCV 82.9 fL (80-100) 10/18/21 10:32 MCH 28.7 PG (26-34) 10/18/21 10:32 MCHC 34.6 % (30-36) 10/18/21 10:32 RDW 13.3 % (11.6-14.8) 10/18/21 10:32 Plt Count 172 X10^3/uL (150-400) 10/18/21 10:32 Neut % (Auto) 65.3 % (50-75) 10/18/21 10:32 Lymph % (Auto) 25.6 % (25-40) 10/18/21 10:32 [place] % (Auto) 6.9 % (3-14) 10/18/21 10:32 Eos % (Auto) 1.7 % (2-4) L 10/18/21 10:32 Baso % (Auto) 0.5 % (0-2) 10/18/21 10:32 Neut # (Auto) 4000 /uL (2463-6426) 10/18/21 10:32 Lymph # (Auto) 1600 /uL (4248-9391) 10/18/21 10:32 [place] # (Auto) 400 /uL (0-900) 10/18/21 10:32 Eos # (Auto) 100 /uL (0-450) 10/18/21 10:32 Baso # (Auto) 0 /uL (0-100) 10/18/21 10:32 Sodium 139 mmol/L (137-145) 10/18/21 10:32 Potassium 4.4 mmol/L (3.4-5.1) 10/18/21 10:32 Chloride 102 mmol/L (98-107) 10/18/21 10:32 Carbon Dioxide 36 mmol/L (22-32) H 10/18/21 10:32 BUN 15 mg/dL (9-20) 10/18/21 10:32 Creatinine 0.82 mg/dL (0.66-1.25) 10/18/21 10:32 Estimated GFR > 60 mL/min (>60) 10/18/21 10:32 BUN/Creatinine Ratio 18.3 (6-22) 10/18/21 10:32 Glucose 107 mg/dL (70-100) H 10/18/21 10:32 Calcium 8.9 mg/dL (8.4-10.2) 10/18/21 10:32 Total Bilirubin 0.4 mg/dL (0.2-1.3) 10/18/21 10:32 Conjugated Bilirubin 0.0 md/dL (0.0-0.3) 10/18/21 10:32 Unconjugated Bilirubin 0.6 mg/dL (0.0-1.1) 10/18/21 10:32 AST 77 IU/L (17-59) H 10/18/21 10:32 ALT 94 IU/L (<50) H 10/18/21 10:32 Alkaline Phosphatase 75 U/L (38-126) 10/18/21 10:32 Lactate Dehydrogenase 525 U/L (313-618) 05/27/21 12:55 Total Protein 7.3 g/dL (6.3-8.2) 10/18/21 10:32 Albumin 4.2 g/dL (3.5-5.0) 10/18/21 10:32 Globulin 3.1 g/dL (1.7-4.1) 10/18/21 10:32 Albumin/Globulin Ratio 1.4 (1.0-2.8) 10/18/21 10:32 Triglycerides 208 mg/dL (35-150) H 10/18/21 10:32 Cholesterol 210 mg/dL (140-199) H 10/18/21 10:32 LDL Cholesterol, Calc 125 mg/dL (<100) H 10/18/21 10:32 VLDL Cholesterol 23 mg/dL (2-30) 08/06/21 09:57 HDL Cholesterol 43 mg/dL (40-60) 10/18/21 10:32 TSH 2.97 uIU/mL (0.47-4.68) 10/18/21 10:32 Assessment and Plan (1) Malignant melanoma metastatic to brain Nicho is a 60 year old male with remote history of upper back melanoma status post wide local excision and bilateral axillary lymph node dissection about in 2009. He developed recurrent metastatic melanoma involving brain s/p craniotomy in December 2015 followed by gamma knife treatment and one year of nivolumab completed 02/2017. His melanoma is BRAF V600K positive. He has been on active surveillance since and has been ALPESH for the past 4+ years. Clinically, I do not think there is any evidence of disease recurrence. I reviewed the CT of the chest abdomen and pelvis as well as brain MRI results with the patient. I talked with him that there is no evidence of disease recurrence or metastasis. The multiple small pulmonary nodules have remained stable and the largest measured 0.7 cm. It is unlikely representing active disease. I will have the patient come back in 6 months for follow-up visit. 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 Plan: RTC in 6 months, CBC, CMP, TSH.
[2021-10-26 14:08] VITALS: BP 126/78; PULSE 55; RESP 18; TEMP 36.8; O2SAT 97
[2022-04-28 13:45] VITALS: BP 133/60; PULSE 63; RESP 18; TEMP 37; O2SAT 99
--- NOTE | 2022-04-28 13:54 | P.PNONC_ITS ---
PN -Subjective - Date of Visit Date of visit: 04/28/22 Chief Complaint: Nicho is a 61 year old male with metastatic melanoma Interval history: He reports no headache, no vision changes. no double vision, and no fatigue. He works out a lot. He has dry cough. No abdominal pain, no diarrhea and no skin rashes. He is reporting right upper thigh cramps sometimes. No lumps or bumps. Oncology HPI: Nicho Reyes is a 61 year old male. He recalled that he was diagnosed with skin melanoma in the upper back about in 2009. 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 Patient underwent surgical resection of brain metastasis in December 2015 followed by gamma knife treatment. Patient was found to have low volume pulmonary metastasis on CT imaging. Patient received immunotherapy with nivolumab from February 2016 to February 2017 with no significant side effects. Patient has been followed by surveillance CT scan and MRI brain since. - ROS All Systems: reviewed and no additional remarkable complaints except as stated Home Medications and Allergies Home Medications Medication Instructions Recorded Confirmed Type famotidine 20 mg tablet 20 mg PO BEDTIME 12/17/20 04/28/22 History ascorbic acid (vitamin C) 500 mg 500 mg PO DAILY 05/27/21 04/28/22 History capsule,extended release (Vitamin C) cholecalciferol (vitamin D3) 50 50 mcg PO DAILY 05/27/21 04/28/22 History mcg (2,000 unit) capsule (Vitamin D3) multivitamin 1 tab PO DAILY 05/27/21 04/28/22 History oxybutynin chloride 5 mg 5 mg PO DAILY #90 tabs 08/12/21 04/28/22 Rx tablet,extended release 24 hr rosuvastatin 20 mg tablet See Rx Instructions .Route 09/08/21 04/28/22 Rx .COMPLEX #90 tabs ibuprofen 600 mg tablet 600 mg PO Q6H PRN pain or 12/30/21 04/28/22 Rx inflammation #90 tabs gabapentin 300 mg capsule 300 mg PO DAILY #30 caps 01/31/22 04/28/22 Rx levothyroxine 125 mcg tablet 125 mcg PO DAILY #90 tabs 03/10/22 04/28/22 Rx Allergies Allergy/AdvReac Type Severity Reaction Status Date / Time No Known Drug Allergies Allergy Unverified 06/10/21 10:56 Exam Vital signs: Vital Signs Temp Pulse Resp BP Pulse Ox 04/28/22 13:45 98.6 F 63 18 133/60 99 Intake and Output 04/27/22 04/28/22 04/28/22 23:59 07:59 15:59 Other: Weight 92 kg Patient Weight 04/28/22 23:59 Weight 92 kg - Constitutional positive no acute distress, positive obese, positive cooperative - Routine HEENT Exam Head: Present: normocephalic, atraumatic Eye: Present: EOMI, PERRL, normal accommodation. Absent: conjunctival icterus - Routine Neck Exam Present: supple. Absent: lymphadenopathy, thyromegaly - Routine Chest/Breast/Axilla Exam Axillae: Absent: lymphadenopathy - Routine Respiratory Exam Present: Clear to auscultation bilaterally. Absent: wheezes, crackles - Routine Cardiovascular Exam Present: RRR, S1, S2. Absent: murmur, gallop, rubs - Routine Abdominal Exam Present: soft. Absent: tenderness, distended, organomegaly - Routine Extremities Exam Absent: edema - Routine Neurological Exam Present: alert, oriented X3, CN II-XII intact. Absent: sensory deficit - Routine Psychiatric Exam Present: normal affect Results - Labs Laboratory Last Values WBC 6.1 X10^3/uL (4.5-11.0) 10/18/21 10:32 RBC 4.97 X10^6/uL (4.5-5.9) 10/18/21 10:32 Hgb 14.2 g/dL (13.5-17.5) 10/18/21 10:32 Hct 41.2 % (41-53) 10/18/21 10:32 MCV 82.9 fL (80-100) 10/18/21 10:32 MCH 28.7 PG (26-34) 10/18/21 10:32 MCHC 34.6 % (30-36) 10/18/21 10:32 RDW 13.3 % (11.6-14.8) 10/18/21 10:32 Plt Count 172 X10^3/uL (150-400) 10/18/21 10:32 Neut % (Auto) 65.3 % (50-75) 10/18/21 10:32 Lymph % (Auto) 25.6 % (25-40) 10/18/21 10:32 [place] % (Auto) 6.9 % (3-14) 10/18/21 10:32 Eos % (Auto) 1.7 % (2-4) L 10/18/21 10:32 Baso % (Auto) 0.5 % (0-2) 10/18/21 10:32 Neut # (Auto) 4000 /uL (4633-0649) 10/18/21 10:32 Lymph # (Auto) 1600 /uL (7157-2270) 10/18/21 10:32 [place] # (Auto) 400 /uL (0-900) 10/18/21 10:32 Eos # (Auto) 100 /uL (0-450) 10/18/21 10:32 Baso # (Auto) 0 /uL (0-100) 10/18/21 10:32 Sodium 139 mmol/L (137-145) 10/18/21 10:32 Potassium 4.4 mmol/L (3.4-5.1) 10/18/21 10:32 Chloride 102 mmol/L (98-107) 10/18/21 10:32 Carbon Dioxide 36 mmol/L (22-32) H 10/18/21 10:32 BUN 15 mg/dL (9-20) 10/18/21 10:32 Creatinine 0.82 mg/dL (0.66-1.25) 10/18/21 10:32 Estimated GFR > 60 mL/min (>60) 10/18/21 10:32 BUN/Creatinine Ratio 18.3 (6-22) 10/18/21 10:32 Glucose 107 mg/dL (70-100) H 10/18/21 10:32 Calcium 8.9 mg/dL (8.4-10.2) 10/18/21 10:32 Total Bilirubin 0.4 mg/dL (0.2-1.3) 10/18/21 10:32 Conjugated Bilirubin 0.0 md/dL (0.0-0.3) 10/18/21 10:32 Unconjugated Bilirubin 0.6 mg/dL (0.0-1.1) 10/18/21 10:32 AST 77 IU/L (17-59) H 10/18/21 10:32 ALT 94 IU/L (<50) H 10/18/21 10:32 Alkaline Phosphatase 75 U/L (38-126) 10/18/21 10:32 Lactate Dehydrogenase 525 U/L (313-618) 05/27/21 12:55 Total Protein 7.3 g/dL (6.3-8.2) 10/18/21 10:32 Albumin 4.2 g/dL (3.5-5.0) 10/18/21 10:32 Globulin 3.1 g/dL (1.7-4.1) 10/18/21 10:32 Albumin/Globulin Ratio 1.4 (1.0-2.8) 10/18/21 10:32 Triglycerides 208 mg/dL (35-150) H 10/18/21 10:32 Cholesterol 210 mg/dL (140-199) H 10/18/21 10:32 LDL Cholesterol, Calc 125 mg/dL (<100) H 10/18/21 10:32 VLDL Cholesterol 23 mg/dL (2-30) 08/06/21 09:57 HDL Cholesterol 43 mg/dL (40-60) 10/18/21 10:32 TSH 2.97 uIU/mL (0.47-4.68) 10/18/21 10:32 Assessment and Plan (1) Malignant melanoma metastatic to brain Nicho is a 61 year old male with remote history of upper back melanoma status post wide local excision and bilateral axillary lymph node dissection about in 2009. He developed recurrent metastatic melanoma involving brain s/p craniotomy in December 2015 followed by gamma knife treatment and one year of nivolumab completed 02/2017. His melanoma is BRAF V600K positive. He has been on active surveillance since and has been ALPESH Clinically, I do not think there is any evidence of disease recurrence. I will continue current active surveillance Plan: RTC in 6 months, CBC, CMP, TSH, MR brain w/wo contrast, CT CAP w/contrast
--- NOTE | 2022-10-06 19:05 | ONC.SCHED ---
CT/MRI: CT scan does not required PA but the MRI does. I have submitted the MRI auth and am waiting for a response back. Patient called to check the status of the auth and I let him know the MRI is pending. I was given this message to work on the auth today for his 10/27/22 apt.
--- NOTE | 2022-10-10 13:40 | ONC.SCHED ---
CT/MRI: I called patient to let him know his MRI was approved and CT scan was good to go (no auth needed). I transferred the patient to to schedule these exams. He will also get his labs the same day as the scans.
[2022-10-27 13:38] VITALS: BP 131/81; PULSE 73; RESP 16; TEMP 36.6; O2SAT 99
--- NOTE | 2022-10-27 13:45 | P.PNONC_ITS ---
PN -Subjective - Date of Visit Date of visit: 10/27/22 Chief Complaint: Nicho is a 61 year old male with metastatic melanoma Interval history: Clinically, he has been doing quite well. On 10/13/2022, patient underwent CT chest abdomen and pelvis with contrast that showed a question of slight interval increase in size of the smallest of 3 measured pulmonary nodules. These was deemed not definite. These certainly could all be benign pulmonary nodules. No other significant findings in the chest. No evidence of metastatic disease in the abdomen or pelvis. Patient also underwent brain MRI with and without contrast. The brain MRI showed stable postsurgical sequela and stable bilateral regions of encephalomalacia consistent with resection cavities and or chronic infarction. No evidence of active metastatic disease. Oncology HPI: Nicho Reyes is a 61 year old male. He recalled that he was diagnosed with skin melanoma in the upper back about in 2009. 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 Patient underwent surgical resection of brain metastasis in December 2015 followed by gamma knife treatment. Patient was found to have low volume pulmonary metastasis on CT imaging. Patient received immunotherapy with nivolumab from February 2016 to February 2017 with no significant side effects. Patient has been followed by surveillance CT scan and MRI brain since. Home Medications and Allergies Home Medications Medication Instructions Recorded Confirmed Type ascorbic acid (vitamin C) 500 mg 500 mg PO DAILY 05/27/21 10/27/22 History capsule,extended release (Vitamin C) cholecalciferol (vitamin D3) 50 50 mcg PO DAILY 05/27/21 10/27/22 History mcg (2,000 unit) capsule (Vitamin D3) multivitamin 1 tab PO DAILY 05/27/21 10/27/22 History oxybutynin chloride 5 mg 5 mg PO DAILY #90 tabs 08/12/21 10/27/22 Rx tablet,extended release 24 hr ibuprofen 600 mg tablet 600 mg PO Q6H PRN pain or 12/30/21 10/27/22 Rx inflammation #90 tabs levothyroxine 125 mcg tablet 125 mcg PO DAILY #90 tabs 03/10/22 10/27/22 Rx omeprazole 20 mg capsule,delayed 20 mg PO DAILY 05/10/22 10/27/22 History release gabapentin 300 mg capsule 300 mg PO BEDTIME PRN cramps #90 08/18/22 10/27/22 Rx caps rosuvastatin 20 mg tablet See Rx Instructions .Route 08/29/22 10/27/22 Rx .COMPLEX #90 tabs trazodone 50 mg tablet 50 mg PO 3XW PRN insomnia #60 tabs 09/29/22 10/27/22 Rx Allergies Allergy/AdvReac Type Severity Reaction Status Date / Time No Known Drug Allergies Allergy Unverified 09/29/22 15:32 Exam Vital signs: Vital Signs Temp Pulse Resp BP Pulse Ox 10/27/22 13:38 97.9 F 73 16 131/81 99 Intake and Output 10/26/22 10/27/22 10/27/22 23:59 07:59 15:59 Other: Weight 90.6 kg Patient Weight 10/27/22 23:59 Weight 90.6 kg - Constitutional positive no acute distress, positive average body habitus, positive cooperative - Routine HEENT Exam Head: Present: normocephalic, atraumatic Eye: Present: EOMI, PERRL, normal accommodation. Absent: conjunctival icterus - Routine Neck Exam Present: supple. Absent: lymphadenopathy, thyromegaly - Routine Chest/Breast/Axilla Exam Axillae: Absent: lymphadenopathy - Routine Respiratory Exam Present: Clear to auscultation bilaterally. Absent: wheezes, crackles - Routine Cardiovascular Exam Present: RRR, S1, S2. Absent: murmur, gallop - Routine Abdominal Exam Present: soft. Absent: tenderness, distended, organomegaly - Routine Extremities Exam Absent: edema - Routine Neurological Exam Present: alert, oriented X3, CN II-XII intact. Absent: sensory deficit, motor deficit - Routine Psychiatric Exam Present: normal affect Results - Labs Laboratory Last Values WBC 6.1 X10^3/uL (4.5-11.0) 10/18/21 10:32 RBC 4.97 X10^6/uL (4.5-5.9) 10/18/21 10:32 Hgb 14.2 g/dL (13.5-17.5) 10/18/21 10:32 Hct 41.2 % (41-53) 10/18/21 10:32 MCV 82.9 fL (80-100) 10/18/21 10:32 MCH 28.7 PG (26-34) 10/18/21 10:32 MCHC 34.6 % (30-36) 10/18/21 10:32 RDW 13.3 % (11.6-14.8) 10/18/21 10:32 Plt Count 172 X10^3/uL (150-400) 10/18/21 10:32 Neut % (Auto) 65.3 % (50-75) 10/18/21 10:32 Lymph % (Auto) 25.6 % (25-40) 10/18/21 10:32 [place] % (Auto) 6.9 % (3-14) 10/18/21 10:32 Eos % (Auto) 1.7 % (2-4) L 10/18/21 10:32 Baso % (Auto) 0.5 % (0-2) 10/18/21 10:32 Neut # (Auto) 4000 /uL (1185-2415) 10/18/21 10:32 Lymph # (Auto) 1600 /uL (7291-7026) 10/18/21 10:32 [place] # (Auto) 400 /uL (0-900) 10/18/21 10:32 Eos # (Auto) 100 /uL (0-450) 10/18/21 10:32 Baso # (Auto) 0 /uL (0-100) 10/18/21 10:32 Sodium 139 mmol/L (137-145) 10/18/21 10:32 Potassium 4.4 mmol/L (3.4-5.1) 10/18/21 10:32 Chloride 102 mmol/L (98-107) 10/18/21 10:32 Carbon Dioxide 36 mmol/L (22-32) H 10/18/21 10:32 BUN 15 mg/dL (9-20) 10/18/21 10:32 Creatinine 0.82 mg/dL (0.66-1.25) 10/18/21 10:32 Estimated GFR > 60 mL/min (>60) 10/18/21 10:32 BUN/Creatinine Ratio 18.3 (6-22) 10/18/21 10:32 Glucose 107 mg/dL (70-100) H 10/18/21 10:32 Calcium 8.9 mg/dL (8.4-10.2) 10/18/21 10:32 Total Bilirubin 0.4 mg/dL (0.2-1.3) 10/18/21 10:32 Conjugated Bilirubin 0.0 md/dL (0.0-0.3) 10/18/21 10:32 Unconjugated Bilirubin 0.6 mg/dL (0.0-1.1) 10/18/21 10:32 AST 77 IU/L (17-59) H 10/18/21 10:32 ALT 94 IU/L (<50) H 10/18/21 10:32 Alkaline Phosphatase 75 U/L (38-126) 10/18/21 10:32 Lactate Dehydrogenase 525 U/L (313-618) 05/27/21 12:55 Total Protein 7.3 g/dL (6.3-8.2) 10/18/21 10:32 Albumin 4.2 g/dL (3.5-5.0) 10/18/21 10:32 Globulin 3.1 g/dL (1.7-4.1) 10/18/21 10:32 Albumin/Globulin Ratio 1.4 (1.0-2.8) 10/18/21 10:32 Triglycerides 208 mg/dL (35-150) H 10/18/21 10:32 Cholesterol 210 mg/dL (140-199) H 10/18/21 10:32 LDL Cholesterol, Calc 125 mg/dL (<100) H 10/18/21 10:32 VLDL Cholesterol 23 mg/dL (2-30) 08/06/21 09:57 HDL Cholesterol 43 mg/dL (40-60) 10/18/21 10:32 TSH 2.97 uIU/mL (0.47-4.68) 10/18/21 10:32 Assessment and Plan (1) Malignant melanoma metastatic to brain Nicho is a 61 year old male with remote history of upper back melanoma status post wide local excision and bilateral axillary lymph node dissection about in 2009. He developed recurrent metastatic melanoma involving brain s/p craniotomy in December 2015 followed by gamma knife treatment and one year of nivolumab completed 02/2017. His melanoma is BRAF V600K positive. He has been on active surveillance since and has been ALPESH Clinically, I do not think there is any evidence of disease recurrence. I reviewed the scans with the patient. The brain MRI showed no evidence of disease recurrence or metastasis. CT chest abdomen pelvis also showed excellent results without definitive evidence of disease recurrence or metastasis. It mentioned 3 small pulmonary nodules 1 of which increased questionably. I explained to the patient this could be due to slicing? difference between different scans and it could be due to most likely benign changes. I am recommending that we repeat CT of the chest without contrast in 6 months. Patient voiced understanding and agreed. Plan: CT chest w/o contrast in 6 months RTC after the scan
--- NOTE | 2023-04-05 12:50 | PC.NURSE ---
SILVINA to [facility]: Pt LVM for records to be sent to [facility]. Referral in and message to Diana Dhaliwal
== END ==
PROVIDERS: Physician Assistant; PCP Student in an Organized Health Care Education/Training Program; Referring Provider Student in an Organized Health Care Education/Training Program; Visit Provider Internal Medicine Hematology & Oncology
DX: Z08 Encounter for follow-up examination after completed treatment for malignant neoplasm (principal); Z85.820 Personal history of malignant melanoma of skin
CPT/HCPCS: 36415; 70553; 71260; 74177; 80053; 80061; 80076; 83615; 84443; 85025; 99204; 99214; A9579; Q9967

== ENCOUNTER → 2023-04-27 11:03 | Outpatient (CLI) | payer OTHER, MEDICAID, SELFPAY ==
--- NOTE | 2023-04-27 | DI.CT.S_ITS ---
PROCEDURE: CT CHEST W CON INDICATIONS: Solitary pulmonary nodule TECHNIQUE: After the administration of intravenous contrast, 5 mm thick sections acquired from the pulmonary apices to the posterior costophrenic angles. 1 mm axial lung, 5 mm thick coronal and sagittal reformats and 7 mm axial MIP were acquired. For radiation dose reduction, the following was used: automated exposure control, adjustment of mA and/or kV according to patient size. COMPARISON: None. FINDINGS: Image quality: Excellent. Lungs and pleura: No acute air space opacities. No pleural effusions or pneumothorax. Central and peripheral airways are patent and normal in caliber. Scattered solid pulmonary nodules. Examples include: -stable 7 mm solid nodule, left lower lobe (series 3, image 228). -stable 6 mm solid nodule, right lower lobe (series 3, image 243). -similar 5 mm solid nodule, left lower lobe (series 3, image 169), with interval growth since 2021. However, there is branching nodularity within this region, following the airways. Mediastinum: Heart size is normal. No pericardial effusion. No mediastinal or hilar adenopathy by size criteria. Thoracic aorta and central pulmonary arteries are normal in size. Esophagus is normal in caliber. Small hiatal hernia. Bones and chest wall: No suspicious bony lesions. No vertebral body compression fractures. No axillary or supraclavicular adenopathy by size criteria. Thyroid gland is unremarkable . Right axillary lymph node dissection. Abdomen: Visualized upper abdominal solid organs appear normal. Upper abdominal bowel loops are normal in caliber. IMPRESSION: The left lower lobe solid nodule a stable since 10/13/2022, but has grown since 10/18/2021. There is additional regional nodularity within this region location, following a branching pattern, favoring an endobronchial process such as chronic mucous plugging over malignancy. Close attention on follow-up. Remaining solid pulmonary nodules are stable. Dictated by: Torsten Garcia M.D. on 04/27/2023 at 13:53 Approved by: Torsten Garcia M.D. on 04/27/2023 at 14:05
== END ==
PROVIDERS: PCP Family Medicine; Referring Provider Internal Medicine Hematology & Oncology; Visit Provider Internal Medicine Hematology & Oncology
DX: C79.31 Secondary malignant neoplasm of brain (principal); Z85.820 Personal history of malignant melanoma of skin; R91.8 Other nonspecific abnormal finding of lung field
CPT/HCPCS: 71260; Q9967

== ENCOUNTER → 2023-10-24 11:25 | Outpatient (CLI) | payer OTHER, MEDICAID, SELFPAY ==
[2023-10-24 12:02] LABS: Add Manual Diff / Slide Review NO; Basophils Absolute Auto 100 /uL (0-100); Eosinophils Absolute Auto 200 /uL (0-450); Eosinophils Percent Auto 2.6 % (2-4); Hematocrit 41.8 % (41-53); Hemoglobin 14.7 g/dL (13.5-17.5); Lymphocytes Absolute Auto 1600 /uL (1100-4500); Lymphocytes Percent Auto 27.8 % (25-40); Mean Corpuscular HGB Conc 35.2 % (30-36); Mean Corpuscular Hemoglobin 29.1 PG (26-34); Mean Corpuscular Volume 82.9 fL (80-100); Monocytes Absolute Auto 500 /uL (0-900); Monocytes Percent Auto 8.4 % (3-14); Neutrophils Absolute Auto 3600 /uL (1500-7000); Neutrophils Percent Auto 60.2 % (50-75); Platelet Count 178 X10^3/uL (150-400); Red Blood Cell Count 5.05 X10^6/uL (4.5-5.9); Red Cell Distribution Width 13.1 % (11.6-14.8); White Blood Cell Count 5.9 X10^3/uL (4.5-11.0)
[2023-10-24 12:43] LABS: Alanine Aminotransferase 49 IU/L (<50); Albumin 4.7 g/dL (3.5-5.0); Albumin Globulin Ratio 1.9 (1.0-2.8); Alkaline Phosphatase 69 U/L (38-126); Aspartate Aminotransferase 49 IU/L (17-59); BUN Creatinine Ratio 14.4 (6-22); Bilirubin Total 0.8 mg/dL (0.2-1.3); Blood Urea Nitrogen 16 mg/dL (9-20); Calcium 9.2 mg/dL (8.4-10.2); Carbon Dioxide 34 mmol/L (22-32); Chloride 104 mmol/L (98-107); Cholesterol 175 mg/dL (140-199); Estimated Glomerular Filt Rate > 60 mL/min (>60); Globulin 2.5 g/dL (1.7-4.1); Glucose 103 mg/dL (80-110); HDL Cholesterol 56 mg/dL (40-60); HEMOLYSIS < 15 (0-50); LDL Cholesterol Calculated 98 mg/dL (<100); Potassium 4.5 mmol/L (3.4-5.1); Sodium 139 mmol/L (137-145); Total Protein 7.2 g/dL (6.3-8.2); Triglycerides 107 mg/dL (35-150)
[2023-10-24 13:05] LABS: TSH w/ Reflex to FT4 3.37 uIU/mL (0.47-4.68)
[2023-10-24 13:06] LABS: Prostate Specific Antigen Scrn 1.01 ng/mL (0.1-4.0)
== END ==
LOC: LAB 11:29
PROVIDERS: PCP Family Medicine; Referring Provider Family Medicine; Visit Provider Family Medicine
DX: Z12.5 Encounter for screening for malignant neoplasm of prostate (principal); C79.31 Secondary malignant neoplasm of brain; E03.9 Hypothyroidism, unspecified; E78.2 Mixed hyperlipidemia
CPT/HCPCS: 36415; 80053; 80061; 84443; 85025; G0103

== ENCOUNTER → 2023-10-31 09:57 | Outpatient (CLI) | payer OTHER, MEDICAID, SELFPAY ==
--- NOTE | 2023-10-31 09:59 | DI.MRI.S_ITS ---
PROCEDURE: MR HEAD/BRAIN WO/W CON INDICATIONS: MALIGNANT MELANOMA METASTATIC TO BRAIN TECHNIQUE: Noncontrast axial T1 spin echo, axial T2 fast spin echo, sagittal and axial FLAIR, coronal T2 fast spin echo, axial gradient echo, axial diffusion and ADC through the brain. After the administration of contrast, axial and coronal and sagittal 3D VIBE or T1 spin echo with fat saturation through the brain. COMPARISON: [facility], MR, MR HEAD/BRAIN WO/W CON, 10/13/2022, 8:33. FINDINGS: Image quality: Excellent. CSF Spaces: Basal cisterns are patent. No extra-axial fluid collections. Ventricles are normal in size and shape. Brain: Multifocal encephalomalacia and gliosis noted several resection cavities in pattern similar to the prior exam. No new or enhancing lesions. Restricted diffusion significant mass effect. No midline shift. Otherwise, no Skull and face: Bifrontal craniotomy secured by round plates Sinuses: Sinuses and mastoids appear clear. IMPRESSION: Multifocal resection cavities in gliosis without evidence of recurrent or residual disease. No enhancing lesions. No change from the prior. Approved by: Asael Jenkins M.D. on 10/31/2023 at 17:53
--- NOTE | 2023-10-31 11:43 | DI.CT.S_ITS ---
PROCEDURE: CT CHEST ABD PEL W CON INDICATIONS: MALIGNANT MELANOMA METASTATIC TO BRAIN TECHNIQUE: After the administration of intravenous contrast, 5 mm thick sections acquired from the lung apices to the symphysis. 5 mm coronal and sagittal reformats were performed, with additional 7 mm MIP reformats through the lungs. For radiation dose reduction, the following was used: automated exposure control, adjustment of mA and/or kV according to patient size. COMPARISON: [facility], CT, CT CHEST ABD PEL W CON, 10/13/2022, 9:11. FINDINGS: Image quality: Excellent. CHEST: Lower Neck: No enlarged lymph nodes. Thyroid: No thyroid nodules which require sonographic follow up, per consensus guidelines. Axillae: No enlarged lymph nodes. Axillary lymph node dissections. Chest Wall: Unremarkable. Lungs and Pleura: No pneumothorax or pleural effusions. Scattered pulmonary nodules. Examples include: -stable 7-8 mm solid nodule, left lower lobe (series 5, image 210). -stable 5-6 mm solid nodule, right lower lobe (series 5, image 222). -stable 3 mm solid nodule, right middle lobe (series 5, image 207). Heart: Heart size is mildly enlarged. No pericardial effusion. Thoracic Vessels: Stable mild aneurysm of the ascending aorta, measuring 4.2 cm. Mediastinum and Daphnie: No enlarged lymph nodes. Esophagus: No wall thickening. Small hiatal hernia. ABDOMEN: Liver: No solid mass. Gallbladder: No radiopaque gallstones or wall thickening. Biliary ducts: No biliary dilation. Pancreas: No ductal dilation. Spleen: Size is within normal limits. Adrenal Glands: No adrenal nodules. Kidneys and Ureters: No hydronephrosis. No solid mass. No complex renal cystic lesion which requires follow up. Stomach and Bowel: Normal colonic caliber, without significant wall thickening. Colonic diverticulosis without evidence of diverticulitis. Peritoneum: No abnormal intraperitoneal fluid. No free air. Ventral Wall: No significant ventral hernia. Abdominal Nodes: No retroperitoneal or mesenteric adenopathy by size criteria. Vessels: Aorta and inferior vena cava are normal in size. PELVIS: Pelvic Organs: Unremarkable. Bladder: No bladder wall thickening, accounting for underdistention. Pelvic Nodes: No enlarged lymph nodes. Miscellaneous: Small left inguinal hernia containing fat. Bones: No aggressive osseous abnormality. Degenerative disc disease of the lumbar spine. IMPRESSION: Stable pulmonary nodules. No evidence of metastatic disease. Dictated by: Torsten Garcia M.D. on 10/31/2023 at 13:05 Approved by: Torsten Garcia M.D. on 10/31/2023 at 13:10
== END ==
LOC: CT 09:58
PROVIDERS: PCP Family Medicine; Referring Provider Internal Medicine Hematology & Oncology; Visit Provider Internal Medicine Hematology & Oncology
DX: C79.31 Secondary malignant neoplasm of brain (principal); R91.8 Other nonspecific abnormal finding of lung field
CPT/HCPCS: 70553; 71260; 74177; A9579; Q9967

== ENCOUNTER → 2023-12-21 09:02 | Outpatient (CLI) | payer OTHER, MEDICAID, SELFPAY ==
--- NOTE | 2023-12-21 09:03 | DI.ECHO.S_ITS ---
[facility] : : [address] : : [place] : : [id number] : : Phone: [phone] Echocardiogram Report + + :Name: JAMI GREENFIELD Study Date: 12/21/2023 Height: 69 in : :[facility] ReadingLocation: Weight: 200 lb : : Gender: Male BSA: 2.1 m2 : :: 1960 Age: 63 yrs BP: 139/92 mmHg: :Reason For Study: ASCENDING AORTA DILATATION : :Ordering Physician: SADIA, : :MARCIA Brown Performed By: Rashmi Neff : :Referring: MARCIA MCCULLOUGH : + + Interpretation Summary 1) Normal left ventricular thickness, size, wall motion, and systolic function (EF 55-60%). 2) Mildly enlarged right ventricle with normal function. 3) There is mild mitral regurgitation. 4) The ascending aorta is mild-moderately enlarged at 4.2cm. 5) No prior Echo available for comparison. Procedure: A two-dimensional transthoracic echocardiogram with color flow and Doppler was performed. The study quality was technically adequate. There is no prior echocardiogram noted for this patient. The patient was in sinus bradycardia with heart rates between 54-65 bpm during the exam. Left Ventricle: The left ventricle is normal in size and wall thickness. The ejection fraction is estimated to be 55-60%. Left ventricular systolic function appears normal without focal wall motion abnormalities. Diastolic parameters suggest a relaxation abnormality of the left ventricle, consistent with probable normal filling pressures. Right Ventricle: The right ventricle is mildly dilated. The right ventricular systolic function is normal. Atria: The left atrial size is normal. Right atrial size is normal. There is no Doppler evidence for an interatrial shunt. Mitral Valve: The mitral valve is normal in structure and function. There is mild mitral regurgitation. Aortic Valve: The aortic valve is trileaflet. The aortic valve opens well. There is no aortic valve stenosis. No aortic regurgitation is present. Tricuspid Valve: The tricuspid valve is normal in structure and function. There is trace tricuspid regurgitation. The right ventricular systolic pressure is estimated to be at least 22 mmHg based on an estimated right atrial pressure of 3 mm Hg. Pulmonic Valve: The pulmonic valve leaflets are thin and pliable; valve motion is normal. There is mild pulmonic regurgitation. Great Vessels: The aortic root is normal size. The ascending aorta is mild- moderately enlarged. The IVC is of normal diameter and collapses greater than 50% with a sniff. This suggests a low right atrial pressure of 3 mm Hg. Pericardium/ Pleura There is no pericardial effusion. There is no pleural effusion. MMode/2D Measurements & Calculations LVIDd: 5.6 cm LVOT diam: 2.3 cm LVIDs: 3.5 cm Ao root diam: 3.4 cm FS: 36.2 % asc Aorta Diam: 4.2 cm IVSd: 0.81 cm Ao Arch Diam (Prox Trans): 3.6 cm LVPWd: 0.89 cm LV hicks. diameter/BSA (cm/m^2): 2.7 LV sys. diameter/BSA (cm/m^2): 1.7 LA A2 area: 18.0 cm2 RA long axis: 4.4 cm LA A4 area: 16.4 cm2 RA area: 15.4 cm2 LA length (vol): 5.2 cm RA vol: 45.8 ml LA vol: 47.7 ml RA : 22.2 ml/m2 LA vol index: 23.1 ml/m2 IVC diam: 1.4 cm RVD1 (basal): 4.5 cm TAPSE: 1.9 cm Doppler Measurements & Calculations Ao V2 max: 118.1 cm/sec LVOT Max Emmanuel: 91.7 cm/sec Ao V2 mean: 79.0 cm/sec LV V1 max P.4 mmHg Ao max P.6 mmHg LV V1 VTI: 21.3 cm Ao mean P.8 mmHg QAMAR(I,D): 3.8 cm2 Ao V2 VTI: 23.7 cm QAMAR(V,D): 3.3 cm2 sev ratio: 0.90 QAMAR indexed to BSA (cm^2/m^2): 1.8 MV E max emmanuel: 67.0 cm/sec TR max emmanuel: 219.0 cm/sec MV A max emmanuel: 61.2 cm/sec TR max P.2 mmHg MV E/A: 1.1 PA pr(Accel): 17.3 mmHg Med Peak E' Emmanuel: 8.6 cm/sec E/E' med: 7.8 Lat Peak E' Emmanuel: 9.6 cm/sec E/E' lat: 7.0 E/e' average: 7.4 MV dec time: 0.24 sec SV(LVOT): 90.2 ml Reading Physician:12:02 PM
== END ==
PROVIDERS: PCP Family Medicine; Referring Provider Family Medicine; Visit Provider Family Medicine
DX: I34.0 Nonrheumatic mitral (valve) insufficiency (principal); I37.1 Nonrheumatic pulmonary valve insufficiency; I77.810 Thoracic aortic ectasia; I51.7 Cardiomegaly; I77.89 Other specified disorders of arteries and arterioles
CPT/HCPCS: 93306

== ENCOUNTER → 2024-11-27 09:54 | Outpatient (CLI) | payer OTHER, SELFPAY ==
[2024-11-27 10:35] LABS: Hematocrit 39.7 % (41-53); Hemoglobin 13.9 g/dL (13.5-17.5); Mean Corpuscular HGB Conc 34.9 % (30-36); Mean Corpuscular Hemoglobin 29.4 PG (26-34); Mean Corpuscular Volume 84.3 fL (80-100); Platelet Count 171 X10^3/uL (150-400); Red Blood Cell Count 4.71 X10^6/uL (4.5-5.9); Red Cell Distribution Width 13.2 % (11.6-14.8)
[2024-11-27 10:40] LABS: Hemoglobin A1C% w Est Avg Glu 5.2 % (4.0-6.0)
[2024-11-27 14:22] LABS: Alanine Aminotransferase 26 IU/L (<50); Albumin 4.2 g/dL (3.5-5.0); Albumin Globulin Ratio 1.7 (1.0-2.8); Alkaline Phosphatase 72 U/L (38-126); Aspartate Aminotransferase 39 IU/L (17-59); BUN Creatinine Ratio 15.7 (6-22); Bilirubin Total 0.5 mg/dL (0.2-1.3); Blood Urea Nitrogen 19 mg/dL (9-20); Calcium 9.1 mg/dL (8.4-10.2); Carbon Dioxide 29 mmol/L (22-32); Chloride 102 mmol/L (98-107); Cholesterol 157 mg/dL (140-199); Estimated Glomerular Filt Rate > 60 mL/min (>60); Globulin 2.5 g/dL (1.7-4.1); Glucose 106 mg/dL (70-99); HDL Cholesterol 50 mg/dL (40-60); HEMOLYSIS < 15 (0-50); LDL Cholesterol Calculated 90 mg/dL (<100); Potassium 4.5 mmol/L (3.4-5.1); Sodium 139 mmol/L (137-145); Total Protein 6.7 g/dL (6.3-8.2); Triglycerides 86 mg/dL (35-150)
[2024-11-27 14:39] LABS: TSH w/ Reflex to FT4 3.27 uIU/mL (0.47-4.68)
[2024-11-27 14:54] LABS: Prostate Specific Antigen Scrn 0.921 ng/mL (0.1-4.0)
== END ==
PROVIDERS: PCP Family Medicine; Referring Provider Family Medicine; Visit Provider Family Medicine
DX: E03.9 Hypothyroidism, unspecified (principal); E78.2 Mixed hyperlipidemia; R35.1 Nocturia; Z79.899 Other long term (current) drug therapy; R39.15 Urgency of urination; R73.09 Other abnormal glucose; Z12.5 Encounter for screening for malignant neoplasm of prostate
CPT/HCPCS: 36415; 80053; 80061; 83036; 84443; 85027; G0103